=== PATIENT | male | born 1975 | race African-American/Black ===

== ENCOUNTER 2016-06-05 21:30 | Emergency (ER) | payer SELFPAY ==
[~2016-06-05] VITALS: Ht 198.1 cm; Wt 90.9 kg
[2016-06-05 21:37] VITALS: BP 153/89; PULSE 106; RESP 20; O2SAT 100
--- NOTE | 2016-06-05 22:21 | ED.REPORT ---
HPI-Extremity Problem Lower Date of Service Jun 05, 2016 ED Provider: Ernesto Delvalle Patient is a 40 year old paraplegic to presents to the ED complaining of R toe injuries from rolling in his wheelchair without shoes and dragging his foot. He denies fever, chills, or any other symptoms. Nursing Notes Stated Complaint: RIGHT FOOT/TOE INFECTION Chief Complaint: Extremity Trauma Nursing Notes Reviewed: Yes Allergies: Coded Allergies: No Known Allergies (Unverified , 06/05/16) Scheduled Cephalexin (Keflex) 500 Mg Capsule 500 MG PO QID Mupirocin (Mupirocin Ointment) 22 Gm Oint...g. 1 APPLIC TOP TID General Time Seen by MD: 22:20 Chief Complaint Foot injury right Hx Obtained From: Patient Arrived By: Wheelchair Past Medical History Past Medical History Paraplegic Past Surgical History Unknown Smoking History Unknown if Ever Smoker Ambulatory Status Wheelchair Review of Systems Constitutional: Denies: Chills, Fever Musculoskeletal: Reports: Joint pain (R toes ) Complete sys rev & neg: except as marked. Physical Exam Initial Vital Signs Vital Signs (First) Date Time Temp Pulse Resp B/P Pulse Ox O2 Delivery O2 Flow Rate FiO2 06/05/16 21:37 37 106 20 153/89 100 Room Air Initial VS: Reviewed General/Constitutional: Well-developed, Well-nourished Head / Eyes: Atraumatic, Normocephalic Neck: Full range of motion Respiratory: No respiratory distress Cardiovascular: Heart sounds normal, Intact distal pulses Abdomen / GI: Soft, Non-tender, No distention Skin: Warm, Dry Neurologic: Alert, Oriented, Nonfocal Psychiatric: Mood/affect normal, Behavior normal, Normal thought content Lower Extremity / Pelvis / MS: Atraumatic Ankle / Foot: No edema Toes warm and well perfused. Good pulses. Dorsum of R foot atraumatic. L foot atraumatic. Superficial abrasion on dorsum of R toes with purulent drainage of first and third R toes. Neurologic: Oriented X3, Speech NL Paraplegic Re-Eval/Medical Decision Med Decision/Clinical Course Patient is a 40 year old paraplegic to presents to the ED complaining of R toe injuries from rolling in his wheelchair without shoes and dragging his foot. He denies fever, chills, or any other symptoms. In the emergency room the patient is afebrile, he is stable and altered distress. Examination reveals superficial abrasions overlying the dorsum of his right toes with mild surrounding cellulitis and purulent cereal present. There is no evidence of systemic infection and the patient is nontoxic in appearance. There is no proximal streaking erythema. I ordered x-ray of the patient's foot in order to definitively rule out any evidence of fracture or osteomyelitis or foreign body. The patient adamantly refused x-ray and demonstrated decisional capacity in doing so. He also demonstrated insight and understanding that we could miss a potentially serious complications. He is provided with a flat soled shoe and clean sterile dressings were placed over his toes with mupirocin ointment. He is prescribed a 10 day course of cephalexin. Prior to discharge follow-up and return precautions were reviewed in detail with the patient who verbalized understanding and agreement with the plan. The patient was discharged in stable condition. Re-Evaluation/Progress : Time of Eval: 23:17 Re-Evaluation/Progress Note: Pt is refusing foot xray. Discussed plan for discharge after cleaning and dressing of wounds. Patient understands and agrees with plan. All questions addressed at this time. Counseled Regarding: Diagnosis, Need for follow-up, When/why to return to ED Discharge & Departure Impression: Primary Impression: Abrasion foot/toe Additional Impressions: Cellulitis of foot Paraplegia Disposition: Home Discharge Condition All VS Reviewed: Yes Condition: Stable Additional Instructions: Thank you for seeking care at the emergency room. It is difficult for us to make definitive diagnoses in the ED but we believe that you are experiencing infected scan from the abrasions on your feet. Our primary goal today in the ED was to evaluate you for any life-threatening conditions. Your evaluation was reassuring. You will be discharged with a prescription for topical antibiotics and oral antibiotics, please apply the mupirocin twice daily and keep her toes covered with clean dressings, please take the full course of Keflex. You should follow-up with your primary doctor in the next week. You should return to the ED immediately if you develop increased swelling, redness, drainage, fevers, vomiting, cough, shortness of breath, chest pain, lightheadedness, weakness or any other concerning signs or symptoms. Thank you for letting us partake in your care today. Scribe Attestation Portions of this note were transcribed by Deloris Mcnair. I, Dr. Delvalle personally performed the history, physical exam and medical decision-making; I reviewed and confirmed the accuracy of the information in the transcribed note. Signed by: Deloris Mcnair 06/06/16, Ernesto Mitchell MD Jun 05, 2016 22:20 DELORIS MCNAIR Jun 05, 2016 23:01
[2016-06-05 22:54] VITALS: BP 151/88; PULSE 89; RESP 17; O2SAT 99
[2016-06-05] MEDS ORDERED: Mupirocin 2% 22 Gm Ointment TOPICAL SCH (23:00)
[2016-06-05] MEDS ORDERED: CEPH-512 PO (23:01)
[2016-06-05] MEDS ORDERED: MUPI22OI2 TOP (23:01)
== END 2016-06-05 23:37 | disposition home or self-care (01) ==
LOC: SED 21:30
DX: S90.414A Abrasion, right lesser toe(s), initial encounter (principal); X50.9XXA Other and unspecified overexertion or strenuous movements or postures, initial encounter; Y93.89 Activity, other specified; Y92.89 Other specified places as the place of occurrence of the external cause; Y99.8 Other external cause status; L03.031 Cellulitis of right toe; G82.20 Paraplegia, unspecified

== ENCOUNTER 2016-06-11 21:38 | Emergency (ER) | payer SELFPAY ==
[~2016-06-11] VITALS: Ht 198.1 cm; Wt 90.9 kg
[~2016-06-11 21:38] MED LIST: CEPH-512 PO; MUPI22OI2 TOP
[2016-06-11 21:44] VITALS: BP 175/94; PULSE 101; RESP 16; O2SAT 99
[2016-06-11 22:21] LABS: BASOPHILS % (AUTO) 0.4 % (0-3); EOSINOPHILS % (AUTO) 1.6 % (0-5); Mean Corpuscular Hemoglobin 24.9 pg (27.0-35.0); Mean Corpuscular Volume 76.5 fL (81-100); NEUTROPHILS % (AUTO) 61.5 % (40-74); Platelet Count 340 bil/L (150-400)
[2016-06-11 22:55] VITALS: BP 157/90; PULSE 84; RESP 14; O2SAT 100
--- NOTE | 2016-06-11 23:59 | ED.REPORT ---
HPI-General Illness Date of Service Jun 11, 2016 ED Provider: Ernesto Delvalle MD Mr. Berry is a pleasant 40-year-old gentleman history of polytrauma from a construction accident, subsequent paraplegia, recent wound infection of his right toes seen in the emergency department on 06/05/16, presents with complaint that he was told his eyes appeared yellow. He conveys that he has a nurse friend who told him that his eyes appeared yellow and could be due to his kidneys or his liver causing him problems. He denies any other medical history , IV drug use, increased weight/bloating/bruising. He denies any change in level of alertness or comprehension. no diarrhea, nausea/vomiting, no pruritus. He states he has not been taking the antibiotic (Keflex) prescribed for him from his previous ER visit for the wounds on his toes because he could not afford them. he denies fever, chills, lightheadedness or dizziness, no abdominal pain nausea or vomiting. He does say he has had some pain right flank area that has been increasing over the last couple of days. He has to do self-catheterization daily. Nursing Notes Stated Complaint: EYES TURNING YELLOW POSSIBLE KINDEY ISSUES Chief Complaint: General Complaint Nursing Notes Reviewed: Yes Allergies: Coded Allergies: No Known Allergies (Unverified , 06/11/16) Scheduled Cephalexin (Keflex) 500 Mg Capsule 500 MG PO QID Mupirocin (Mupirocin Ointment) 22 Gm Oint...g. 1 APPLIC TOP TID General Time Seen by MD: 22:25 Chief Complaint Other (Yellow Eyes) Similar Sx Previous: No Past Medical History Past Medical History Polytrauma from construction accident resulting in paraplegia. Past Surgical History Multiple surgeries to lower extremities, pelvis, back and polytrauma subsequent bedsores. Smoking History Never Smoker Social History Alcohol Use: Denies alcohol use Drug Use: Denies drug use Ambulatory Status Wheelchair Review of Systems Complete sys rev & neg: except as marked. Physical Exam General: Sitting in wheelchair, no apparent distress. HEENT: Normocephalic, atraumatic, EOMI grossly,sclera are hazy white, do not appreciate jaundice on ophthalmoscope exam. Neck is supple without lymphadenopathy. mucous membranes moist, conjunctiva pink. Cardiovascular: Regular rate and rhythm, no clicks murmurs rubs, peripheral pulses 2/4 equal bilaterally Pulmonary: Clear to auscultation bilaterally, no W/R/R. Abdominal: Soft to palpation, bowel sounds present 4, no hepatosplenomegaly. Negative rebound. GI/: there is mild right CVA tenderness. Extremities: Fingernail beds are pink. muscle wasting to bilateral lower extremities, distal lower extremities are cold, there our open wounds to the dorsum of his right first toe, dorsal lateral portion of his third toe. There is no foul odor, no abdirizak purulence, unable to assess tenderness due to paralysis, therapies to be a black eschar on the dorsum of the right second toe. Neuro: upper extremities grossly intact, cranial nerves II through XII grossly intact. Paralysis to bilateral lower extremities. MSK: Upper extremity strength is 5 out of 5, equal bilaterally. Vital Signs Vital Signs Date Time Temp Pulse Resp B/P Pulse Ox O2 Delivery O2 Flow Rate FiO2 06/12/16 01:07 36.6 80 16 140/88 100 Room Air 06/11/16 22:55 36.4 84 14 157/90 100 Room Air 06/11/16 21:44 37.0 101 16 175/94 99 Room Air Initial VS: Reviewed Interpretation & Diagnostics Lab Results Interpretation Result Diagram: 06/11/16 2203 06/11/16 2203 Test 06/11/16 22:03 06/11/16 23:42 White Blood Count 4.9th/mm3 (3.8-10.1) Red Blood Count 5.67mil/mm3 (4.40-5.80) Hemoglobin 14.1g/dL (13.8-17.2) Hematocrit 43.4% (41.0-50.0) Mean Corpuscular Volume 76.5fL (81-100) Mean Corpuscular Hemoglobin 24.9pg (27.0-35.0) Mean Corpuscular Hemoglobin Concent 32.5% (32.0-37.0) Red Cell Distribution Width 17.9% (12.3-15.4) Platelet Count 340bil/L (150-400) Neutrophils (%) (Auto) 61.5% (40-74) Lymphocytes (%) (Auto) 26.1% (14-46) Monocytes (%) (Auto) 10.0% (4-12) Eosinophils (%) (Auto) 1.6% (0-5) Basophils (%) (Auto) 0.4% (0-3) Sodium Level 137mEq/L (134-144) Potassium Level 4.0mEq/L (3.5-5.2) Chloride Level 101mEq/L (97-108) Carbon Dioxide Level 21mmol/L (18-29) Blood Urea Nitrogen 8mg/dL (6-24) Creatinine 0.45mg/dL (0.76-1.27) Estimat Glomerular Filtration Rate 219mL/min (>59) Glucose Level 137mg/dL (60-99) Calcium Level 9.6mg/dL (8.5-10.1) Total Bilirubin 0.3mg/dL (0.0-1.2) Aspartate Amino Transf (AST/SGOT) 26U/L (0-50) Alanine Aminotransferase (ALT/SGPT) 28U/L (0-44) Alkaline Phosphatase 111U/L (25-150) Total Protein 7.0g/dL (6.4-8.4) Albumin 3.8g/dL (3.4-5.0) Hold Rivera Top Tube Received (Received) Urine Color Yellow (YELLOW) Urine Appearance Hazy (CLEAR,HAZY) Urine pH 7.0 (5.0-8.0) Urine Specific [place] 1.010 (1.003-1.035) Urine Protein Negativemg/dL (NEG,TRACE) Urine Glucose (UA) Negativemg/dL (NEGATIVE) Urine Ketones Negativemg/dL (NEGATIVE) Urine Occult Blood Negative (NEGATIVE) Urine Nitrite Positive (NEGATIVE) Urine Bilirubin Negative (NEGATIVE) Urine Urobilinogen 1.0mg/dL (NORMAL) Urine Leukocyte Esterase Trace (NEGATIVE) Urine RBC 0-2/hpf (0-2) Urine WBC 11-50/hpf (0-5) Urine Epithelial Cells Few/hpf (NONE-MOD) Urine Crystals None seen (NONE SEEN) Urine Bacteria Many/hpf (NONE-FEW) Urine Hyaline Casts None/lpf (NONE) Urine Granular Casts None seen (NONE SEEN) Urine Waxy Casts None seen (NONE SEEN) Urine Red Blood Cell Casts None seen (NONE SEEN) Urine White Blood Cell Casts None seen (NONE SEEN) Urine Mucus None seen (None Seen) Urine Trichomonas None seen (NONE SEEN) Urine Yeast None (NONE SEEN) Urinalysis Comment None Urine Culture Reflexed Indicated Lab Results Interpretation: Liver enzymes and bilirubin are normal Hematology completely benign Urinalysis: Urinary tract infection Re-Eval/Medical Decision Med Decision/Clinical Course In regards to patient's chief complaint is clear did not appear icteric, no other physical exam findings suggesting jaundice. Total bilirubin was normal, liver enzymes were normal. Based on his complaint of been worsening over the last 3 days straight cath was performed and demonstrated urinary tract infection. He was given a dose of ciprofloxacin in the ER and given 20 pills to take home with instructions for use. In regards to his lower extremity wounds, these were evaluated by Dr. Delvalle who saw the patient last week and stated that they appeared as though they were not doing worse. physical exam did not suggest worsening infection, the digits were cool, there is no abdirizak purulence, and the tissue did not appear red or inflamed. He was instructed to follow-up with primary care doctor and given instructions to contact the residency clinic to be seen within 1 week. Discharge & Departure Primary Impression: Urinary tract infection Urinary tract infection type: acute pyelonephritis Qualified Code: N10 - Acute pyelonephritis Disposition: Home Discharge Condition All VS Reviewed: Yes Condition: Stable Patient Instructions: Urinary Tract Infection in Men (ED) Additional Instructions: Thank you for entrusting us with your care. Evaluation today did not show that you are having any problems with your liver that could be causing her eyes to turn yellow. However, further evaluation of your urine showed that you are currently fighting an infection of your liver and probably your kidney. we are giving you a ten-day course of antibiotics, and giving you the first dose while you are in the department. please stay well hydrated, try to drink at least 2 L of water a day. Do not go too long in between self-catheterization, try to do it at least 4 times a day if not more. Use only clean sterile catheters. If you experience any worsening back pain, lightheadedness, dizziness, fever, chills, chest pain or shortness of breath please return to the emergency department immediately or call 911 if necessary. Please take the antibiotic through its completion. Recommend you take it with food to avoid nausea. Please follow-up with the primary care doctor regarding your emergency room visit and urinary tract infection. I have placed a referral to the [facility] residency clinic located across the street from the hospital. Please contact them today at [phone] to schedule an emergency room follow-up within 1 week. Referrals: [facility] EDSupervising Provider for APC: Ernesto Delvalle MD Attending Statement Attending attestation: I saw this patient in conjunction with the above named resident. I was present for all gatica portions of the history taking and physical examination. I agree with the workup, evaluation, treatment and disposition. Ernesto Delvalle MD copies to: [facility] Chuy Maddox DO Jun 11, 2016 23:59 Ernesto Delvalle MD Jun 12, 2016 01:24
[2016-06-12 00:07] LABS: APPEARANCE,URINE HAZY (CLEAR,HAZY); COLOR,URINE YELLOW (YELLOW); OCCULT BLOOD,URINE NEGATIVE (NEGATIVE)
[2016-06-12] MEDS ORDERED: _Ciprofloxacin 500 mg Tablet PO SCH (00:40)
[2016-06-12 01:07] VITALS: BP 140/88; PULSE 80; RESP 16; O2SAT 100
== END 2016-06-12 01:08 | disposition home or self-care (01) ==
LOC: SED 21:38
DX: N10 Acute pyelonephritis (principal)

== ENCOUNTER 2016-06-25 22:14 | Emergency (ER) | payer SELFPAY ==
[~2016-06-25] VITALS: Ht 198.1 cm; Wt 90.9 kg
[2016-06-25 22:18] VITALS: BP 154/88; PULSE 117; RESP 18; O2SAT 100
--- NOTE | 2016-06-25 22:42 | ED.REPORT ---
HPI-General Illness Date of Service June 25, 2016 ED Provider: Derik Ayala MD Pt is a 41 y.o. male who is paraplegic presents to the ED via EMS c/o sudden onset anxiety. He states that he has recently been "thinking about all his problems" and "feels like he is a disappointment to his friends". Pt denies SI, SOB, chest pain, and fever. He denies ETOH and drug use. Per EMS pt was hypertensive (220/140) and tachycardic (128) upon their arrival. Nursing Notes Stated Complaint: ANXIETY Chief Complaint: General Complaint Nursing Notes Reviewed: Yes Allergies: Coded Allergies: morphine (Verified Allergy, Unknown, 06/25/16) Scheduled Cephalexin (Keflex) 500 Mg Capsule 500 MG PO QID Mupirocin (Mupirocin Ointment) 22 Gm Oint...g. 1 APPLIC TOP TID General Time Seen by MD: 22:41 Chief Complaint Other (Anxiety) Hx Obtained From: Patient Arrived By: Ambulance Sudden in Onset?: Yes Onset Occurred: Just prior to arrival Symptom Duration: Since onset Severity: Current: No pain currently Severity: Maximum: No pain Recent Healthcare: No recent doctor visit, No recent hospitalization Similar Sx Previous: No Past Medical History Past Medical History Polytrauma from construction accident resulting in paraplegia. Past Surgical History Multiple surgeries to lower extremities, pelvis, back and polytrauma subsequent bedsores. Smoking History Never Smoker Social History Alcohol Use: Denies alcohol use Drug Use: Denies drug use Ambulatory Status Wheelchair Review of Systems Full Review of Systems Constitutional: Denies: Fever Respiratory: Denies: Shortness of breath Cardiovascular: Denies: Chest pain Psychiatric: Reports: Anxiety, Denies: Suicidal ideation Complete sys rev & neg: except as marked. Physical Exam Vital Signs Vital Signs Date Time Temp Pulse Resp B/P Pulse Ox O2 Delivery O2 Flow Rate FiO2 06/26/16 06:03 36.8 130 26 172/94 100 Room Air 06/26/16 03:39 133 19 174/105 96 Room Air 06/25/16 22:18 36.7 117 18 154/88 100 Room Air Initial VS: Reviewed, Vital signs abnormal Head / Eyes: Atraumatic, Normocephalic Abdomen / GI: No distention Extremities: Vascular intact Skin: Warm, Dry, No cyanosis Neurologic: Alert, Oriented, Nonfocal General/Constitutional: Awake, Alert, Well appearing, Well developed, Well hydrated, Well nourished, Not toxic appearing Parapalegic Pt is incontinent of stool Respiratory / Chest: Atraumatic, Breath sounds NL, Breath sounds = bilat, No respiratory distress Cardiovascular: Regular rhythm, Heart sounds NL, Peripheral circulation NL Heart Rate / Rhythm: Positive: Tachycardia Lower Extremity / Pelvis / MS: Vascular intact Paralysis with contractures Knees held in flexion Psychiatric: Not suicidal, Not homicidal, No hallucinations Abnormal Mood/Affect: Positive: Depressed, Flat affect Interpretation & Diagnostics Lab Results Interpretation Result Diagram: 06/25/164 06/25/164 Test 06/25/16 22:54 White Blood Count 5.7th/mm3 (3.8-10.1) Red Blood Count 5.66mil/mm3 (4.40-5.80) Hemoglobin 14.5g/dL (13.8-17.2) Hematocrit 43.2% (41.0-50.0) Mean Corpuscular Volume 76.3fL (81-100) Mean Corpuscular Hemoglobin 25.6pg (27.0-35.0) Mean Corpuscular Hemoglobin Concent 33.6% (32.0-37.0) Red Cell Distribution Width 16.4% (12.3-15.4) Platelet Count 312bil/L (150-400) Neutrophils (%) (Auto) 65.8% (40-74) Lymphocytes (%) (Auto) 17.0% (14-46) Monocytes (%) (Auto) 16.1% (4-12) Eosinophils (%) (Auto) 0.5% (0-5) Basophils (%) (Auto) 0.2% (0-3) Band Neutrophils % 0% (1-5) Sodium Level 141mEq/L (134-144) Potassium Level 3.1mEq/L (3.5-5.2) Chloride Level 97mEq/L (97-108) Carbon Dioxide Level 23mmol/L (18-29) Blood Urea Nitrogen 8mg/dL (6-24) Creatinine 0.40mg/dL (0.76-1.27) Estimat Glomerular Filtration Rate 250mL/min (>59) Glucose Level 96mg/dL (60-99) Calcium Level 10.0mg/dL (8.5-10.1) Magnesium Level 1.8mg/dL (1.6-2.6) Total Bilirubin 1.1mg/dL (0.0-1.2) Aspartate Amino Transf (AST/SGOT) 41U/L (0-50) Alanine Aminotransferase (ALT/SGPT) 34U/L (0-44) Alkaline Phosphatase 117U/L (25-150) Troponin T 0.010ug/L (0.0-0.011) Total Protein 8.1g/dL (6.4-8.4) Albumin 4.9g/dL (3.4-5.0) Lab Results Interpretation: Hypokalemia ECG Interpretation ECG Interpretation: PVC Time: 22:48 Interpreted by: ED physician Normal ECG Interpretation: Normal sinus rhythm Rhythm / Conduction: Tachycardia (113) Re-Eval/Medical Decision Med Decision/Clinical Course 41-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 He has been using methamphetamine and as a result is paranoid and then trusting of his friends. He was originally evaluated by me. He was given potassium for hypokalemia, Ativan for anxiety, and Haldol for the paranoia. He continues to be disabled from the paranoia so his care will be turned over at change of shift to Dr. Jordi Alvarado pending clearing. Source of Hx: Old records Time of Eval: 00:50 Re-Evaluation/Progress Note: Pt rechecked. Pt endorses using meth tonight, he states he has only used it four times. Time of Eval: 05:46 Patient Status: Condition improved Re-Evaluation/Progress Note: Pt rechecked. Discussed plan for discharge, pt understands and agrees with plan. Pt is still tachycardic. Counseled Regarding: Diagnosis, Lab results, Need for follow-up, When/why to return to ED Discharge & Departure Primary Impression: Methamphetamine abuse Additional Impressions: Hypokalemia Paraplegia Disposition: Home Discharge Condition All VS Reviewed: Yes Condition: Improved Patient Instructions: Methamphetamine Abuse (ED) Additional Instructions: Keep yourself safe. Trust your friends. Do not use methamphetamine. Eat high potassium foods (fresh fruits and vegetables). Referrals: [facility] (PCP) [facility] Scribe Attestation Portions of this note were transcribed by Nidia Brown. I, Dr. Ayala personally performed the history, physical exam and medical decision-making; I reviewed and confirmed the accuracy of the information in the transcribed note. Signed by: Shanae Vinson, 06/25/16 and 0658 copies to: [facility] Derik Ayala MD June 25, 2016 22:42 NIDIA BROWN June 25, 2016 22:55
[2016-06-25] MEDS ORDERED: LORazepam 1 mg Tablet PO ONE (23:00)
[2016-06-25 23:05] LABS: Mean Corpuscular Hemoglobin 25.6 pg (27.0-35.0); Mean Corpuscular Volume 76.3 fL (81-100)
[2016-06-25 23:06] LABS: BASOPHILS % (AUTO) 0.2 % (0-3); EOSINOPHILS % (AUTO) 0.5 % (0-5); MONOCYTES % (AUTO) 16.1 % (4-12); NEUTROPHILS % (AUTO) 65.8 % (40-74); Platelet Count 312 bil/L (150-400)
[2016-06-25 23:28] LABS: TROPONIN T 0.01 ug/L (0.0-0.011)
[2016-06-25 23:39] LABS: Magnesium 1.8 mg/dL (1.6-2.6)
[2016-06-26] MEDS ORDERED: Potassium Chloride 20 mEq SR Tablet PO ONE ×2 (00:55→06:25)
[2016-06-26 03:39] VITALS: BP 174/105; PULSE 133; RESP 19; O2SAT 96
[2016-06-26] MEDS ORDERED: LORazepam 1 mg Tablet PO ONE (05:50)
[2016-06-26 06:03] VITALS: BP 172/94; PULSE 130; RESP 26; O2SAT 100
[2016-06-26 09:40] VITALS: BP 121/74; PULSE 72; RESP 14; O2SAT 100
[2016-06-26 11:33] VITALS: BP 137/88; PULSE 114; RESP 18; O2SAT 100
== END 2016-06-26 11:34 | disposition home or self-care (01) ==
LOC: SED 22:14 → EDBD 22:14 → SED 06-26 11:34
DX: F15.20 Other stimulant dependence, uncomplicated (principal); E03.9 Hypothyroidism, unspecified; G82.20 Paraplegia, unspecified; F41.9 Anxiety disorder, unspecified; E87.6 Hypokalemia; Z88.5 Allergy status to narcotic agent

== ENCOUNTER 2016-07-13 13:04 | Emergency (ER) | payer SELFPAY ==
[~2016-07-13] VITALS: Ht 198.1 cm; Wt 90.9 kg
[2016-07-13 13:35] VITALS: BP 173/85; PULSE 123; RESP 22; O2SAT 100
--- NOTE | 2016-07-13 14:56 | ED.REPORT ---
HPI-Psychiatric Illness Date of Service July 13, 2016 ED Provider: Ana Hobson History of Present Illness: knows he is at the hospital. knows it is June. States police came to where he was living. Nursing Notes Stated Complaint: MENTAL HEALTH EVAL Chief Complaint: Psychiatric Complaint Nursing Notes Reviewed: Yes Allergies: Coded Allergies: morphine (Verified Allergy, Unknown, 06/25/16) Scheduled Cephalexin (Keflex) 500 Mg Capsule 500 MG PO QID Mupirocin (Mupirocin Ointment) 22 Gm Oint...g. 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 Smoking History Never Smoker Social History Alcohol Use: Denies alcohol use Drug Use: Denies drug use Ambulatory Status Wheelchair Review of Systems Basic Review of Systems Eyes: Vision NL, No discharge Hematologic: No bleeding, No bruising Allergy / Immune: No allergy Physical Exam Initial Vital Signs Vital Signs (First) Date Time Temp Pulse Resp B/P Pulse Ox O2 Delivery O2 Flow Rate FiO2 07/13/16 13:35 36.6 123 22 173/85 100 Room Air Initial VS: Reviewed, Vital signs abnormal Head / Eyes: Atraumatic, Normocephalic, PERRL ENT: Mucous membranes moist, Conjunctiva normal, No scleral icterus Neck: Supple, Non-tender, Full range of motion Respiratory: Breath sounds normal, Clear to auscultation, No respiratory distress Cardiovascular: Regular rate & rhythm, Heart sounds normal, Intact distal pulses Abdomen / GI: Soft, Non-tender, No guarding, No rebound, No distention Back: No CVA tenderness Lymphatic: No lymphadenopathy Extremities: Vascular intact, Neuro intact, No swelling, No tenderness Skin: Warm, Dry, No cyanosis General/Constitutional: Awake, Alert, No acute distress, Well appearing, Well developed, Well hydrated, Well nourished, Cooperative, Not toxic appearing Neurologic: Oriented X3, Speech NL, No motor deficits neuro status improves the longer he is here Interpretation & Diagnostics Lab Results Interpretation Result Diagram: 07/13/16 1633 07/13/16 1633 Test 07/13/16 16:33 07/13/16 16:44 White Blood Count 4.7th/mm3 (3.8-10.1) Red Blood Count 5.90mil/mm3 (4.40-5.80) Hemoglobin 15.1g/dL (13.8-17.2) Hematocrit 45.4% (41.0-50.0) Mean Corpuscular Volume 76.9fL (81-100) Mean Corpuscular Hemoglobin 25.6pg (27.0-35.0) Mean Corpuscular Hemoglobin Concent 33.3% (32.0-37.0) Red Cell Distribution Width 15.9% (12.3-15.4) Platelet Count 353bil/L (150-400) Neutrophils (%) (Auto) 69.7% (40-74) Lymphocytes (%) (Auto) 18.6% (14-46) Monocytes (%) (Auto) 10.7% (4-12) Eosinophils (%) (Auto) 0.4% (0-5) Basophils (%) (Auto) 0.2% (0-3) Sodium Level 136mEq/L (134-144) Potassium Level 4.1mEq/L (3.5-5.2) Chloride Level 96mEq/L (97-108) Carbon Dioxide Level 23mmol/L (18-29) Blood Urea Nitrogen 7mg/dL (6-24) Creatinine 0.40mg/dL (0.76-1.27) Estimat Glomerular Filtration Rate 250mL/min (>59) Glucose Level 108mg/dL (60-99) Calcium Level 10.0mg/dL (8.5-10.1) Total Bilirubin 0.6mg/dL (0.0-1.2) Aspartate Amino Transf (AST/SGOT) 31U/L (0-50) Alanine Aminotransferase (ALT/SGPT) 33U/L (0-44) Alkaline Phosphatase 129U/L (25-150) Total Protein 7.3g/dL (6.4-8.4) Albumin 4.0g/dL (3.4-5.0) Thyroid Stimulating Hormone (TSH) 2.360uIU/mL (0.450-4.500) Alcohols < 10mg/dL (0-10) Hold Urine Received (Received) Lab Results Interpretation: urine is positive for meth and amphetamines Re-Eval/Medical Decision Med Decision/Clinical Course 41 year old males presents to the ER for evualation after police were called to his residency. Per report has been yielding a knife. It was the second visit by police today. The knife he had was a pocket knife. Urine is positive for meth. He is speaking, alert at this time. Has paperwork to fill out to connect with the [facility] team. Friend is coming from [place] to pick him up. Discharge & Departure Impression: Primary Impression: Acute situational disturbance Additional Impression: Abrasion foot/toe Patient Instructions: Abrasion (ED) Additional Instructions: Your labs are normal. Your urine was positive for methamphetamine. Please stop doing drugs. Your mentation and ability to speak have greatly increased. Your toes have abrasions on them. Apply bacitracin to them 2 to 3 times daily. It will be OK to get them wet in the bath tub or the shower. Please fill out the paper work to get connected with the [facility] team. REsources are provided, please utulize them. Referrals: [facility] EDSupervising Provider for APC: Ernesto Delvalle MD copies to: [facility] Ana Hobson July 13, 2016 14:56
[2016-07-13 16:24] VITALS: BP 179/99; PULSE 128; O2SAT 100
[2016-07-13 16:56] LABS: BASOPHILS % (AUTO) 0.2 % (0-3); EOSINOPHILS % (AUTO) 0.4 % (0-5); MONOCYTES % (AUTO) 10.7 % (4-12); Mean Corpuscular Hemoglobin 25.6 pg (27.0-35.0); Mean Corpuscular Volume 76.9 fL (81-100); NEUTROPHILS % (AUTO) 69.7 % (40-74); Platelet Count 353 bil/L (150-400)
[2016-07-13 22:56] VITALS: PULSE 108; RESP 16; O2SAT 99
== END 2016-07-13 22:56 | disposition home or self-care (01) ==
LOC: SED 13:04 → EDBD 13:04 → SED 22:56
DX: F43.0 Acute stress reaction (principal); S90.819A Abrasion, unspecified foot, initial encounter; S90.416A Abrasion, unspecified lesser toe(s), initial encounter; X58.XXXA Exposure to other specified factors, initial encounter; Y93.9 Activity, unspecified; Y92.9 Unspecified place or not applicable; Y99.9 Unspecified external cause status; G82.20 Paraplegia, unspecified; Z88.5 Allergy status to narcotic agent
CPT/HCPCS: 36415; 80053; 81002; 84443; 85025; 99284; G0480

== ENCOUNTER 2016-09-20 18:38 | Emergency (ER) | payer SELFPAY ==
[~2016-09-20] VITALS: Ht 198.1 cm; Wt 93.2 kg
[2016-09-20 18:52] VITALS: BP 168/106; PULSE 106; RESP 22; O2SAT 100
== END 2016-09-20 20:11 | disposition left against medical advice (07) ==
LOC: SED 18:38
DX: R51 Headache (principal); R50.9 Fever, unspecified; Z53.21 Procedure and treatment not carried out due to patient leaving prior to being seen by health care provider